=== PATIENT | male | born 1985 | race Hispanic/Latino ===

== ENCOUNTER 2017-05-19 20:38 | Emergency (ER) | payer OTHER ==
[~2017-05-19] VITALS: Ht 177.8 cm; Wt 68.0 kg
[~2017-05-19 20:38] MED LIST: BACTRIM DS TAB1 EACH PO; PERCOCET 5-3251 EACH PO
[2017-05-19] MEDS ORDERED: NAPROXEN500 MG PO (21:55)
[2017-05-19] MEDS ORDERED: DOXYCYCLINE HY100 MG PO (21:55)
== END 2017-05-19 22:00 | disposition home or self-care (01) ==
LOC: ED 20:38
DX: M70.21 Olecranon bursitis, right elbow (principal); F17.200 Nicotine dependence, unspecified, uncomplicated
CPT/HCPCS: 73080; 99283

== ENCOUNTER 2018-12-23 12:58 | Emergency (ER) | payer OTHER ==
[~2018-12-23] VITALS: Ht 177.8 cm; Wt 68.0 kg
[~2018-12-23 12:58] MED LIST changes: +DOXYCYCLINE HY100 MG PO; +NAPROXEN500 MG PO
--- OUTSIDE RECORDS SUMMARY | 2018-12-23 13:00 | XMS ---
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 EHernandez VISIT COUNT (12 MO.) 1 MIRNA Schuster TOTAL 1 NOTE: Visits indicate total known visits. ED/UCC VISIT TRACKING (12 MO.) 12/23/2018 12:[address] [facility] [place] TYPE: Emergency COMPLAINT: - RIB PAIN, FALL INPATIENT VISIT TRACKING (12 MO.) No inpatient visits to display in this time frame [email or web address]
[2018-12-23] MEDS ORDERED: BUPRENORPHIN-N1 EACH SL (15:12)
== END 2018-12-23 13:20 | disposition home or self-care (01) ==
LOC: ED 12:58
DX: R07.81 Pleurodynia (principal)

== ENCOUNTER 2020-01-04 19:51 | Emergency (ER) | payer OTHER ==
[~2020-01-04] VITALS: Ht 177.8 cm; Wt 68.0 kg
[~2020-01-04 19:51] MED LIST changes: +BUPRENORPHIN-N1 EACH SL
--- OUTSIDE RECORDS SUMMARY | 2020-01-04 19:54 | XMS ---
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 Care History Medical/Surgical 12/24/2018 [facility] - Patient is currently established with [facility]. If patient is seen in the ED during business hours. Please contact [facility] at [facility]. Care Recommendation: This patient has had 5 or more Emergency Department visits in the last 12 months.\T\nbsp; Patient requires education on the scope and purpose of the ED as an acute care provider not a Primary Care Provider and should not be utilized for chronic conditions.\T\nbsp; These are guidelines and the provider should exercise clinical judgment when providing care. E.D. VISIT COUNT (12 MO.) 1 [facility] TOTAL 1 NOTE: Visits indicate total known visits. ED/UCC VISIT TRACKING (12 MO.) 01/04/2020 19:[address] [facility] [place] TYPE: Emergency COMPLAINT: - ABD PAIN INPATIENT VISIT TRACKING (12 MO.) No inpatient visits to display in this time frame [email or web address]
== END 2020-01-04 22:24 | disposition home or self-care (01) ==
LOC: ED 19:51
DX: R10.31 Right lower quadrant pain (principal); F17.200 Nicotine dependence, unspecified, uncomplicated; Z79.899 Other long term (current) drug therapy
CPT/HCPCS: 74177; 80053; 81001; 83690; 85025; 99284-25; J1170; J2405; J7030; Q9967

== ENCOUNTER 2023-03-29 07:57 | Emergency (ER) | payer OTHER ==
[~2023-03-29] VITALS: Ht 177.8 cm; Wt 73.7 kg
[2023-03-29] MEDS ORDERED: AMOXICILLIN500 MG PO (08:28)
[2023-03-29 08:34] VITALS: BP 148/76
== END 2023-03-29 08:35 | disposition home or self-care (01) ==
LOC: ED 07:57
DX: K02.9 Dental caries, unspecified (principal); F17.200 Nicotine dependence, unspecified, uncomplicated; Z79.899 Other long term (current) drug therapy
CPT/HCPCS: 99282